=== PATIENT | female | born 1950 | race Caucasian/White ===

== ENCOUNTER 2023-05-20 12:00 | Observation (INO) ==
[2023-05-20 13:07] LABS: ABS Basophils 0.1 10^3/uL (0.0-0.1); ABS Eosinophils 0.2 10^3/uL (0.0-0.5); ABS Lymphocytes 1.8 10^3/uL (1.0-4.8); ABS Monocytes 0.6 10^3/uL (0.0-0.9); ABS Neutrophils 6.9 10^3/uL (1.5-7.6); ABS Nucleated RBC 0.01 10^3/ul; Eosinophil % 1.7 %; Hematocrit 42.9 % (35-45); Hemoglobin 14.6 g/dL (11.5-14.3); Mean Corpuscular Hemoglobin 32.2 pg (27-33); Mean Corpuscular Hgb Conc 34.1 g/dL (31-36); Mean Corpuscular Volume 94.4 fL (80-97); Mean Platelet Volume 7.3 fL (7.5-11.2); Nucleated Red Blood Cells % 0.1 %/100WBC (0.0-0.8); Platelet Count 259 10^3/uL (150-450); Red Blood Count 4.54 10^6/uL (3.63-4.92); White Blood Count 9.6 10^3/uL (3.8-11.8)
[2023-05-20 13:35] LABS: Albumin 4.3 g/dL (3.2-5.2); Albumin/Globulin Ratio 1.7 (1-3); Calcium 10.2 mg/dL (8.6-10.3); Creatinine, Serum 1.17 mg/dL (0.51-0.95); Globulin 2.6 g/dL (2-4); Total Protein 6.9 g/dL (6.4-8.9); eGFR CKD-EPI 48.7 (>60)
[2023-05-20] MEDS: Magnesium Sulfate IV 1GM/100ML 1 GM/100 ML BAG IV ONE (17:49)
[2023-05-20] MEDS: diazePAM INJ CARPUJECT 5 MG/ML SYRINGE IV ONE (19:46)
[2023-05-20] MEDS: Lactated Ringers 1000 ml BAG 500 ML IV ONE (23:44)
[2023-05-21 01:42] LABS: HDL Cholesterol 52.3 mg/dL
[2023-05-21] MEDS: Enoxaparin 40 MG/0.4 ML SYR SUBCUT SCH (06:22)
[2023-05-21 06:47] LABS: ABS Basophils 0.1 10^3/uL (0.0-0.1); ABS Eosinophils 0.2 10^3/uL (0.0-0.5); ABS Monocytes 0.6 10^3/uL (0.0-0.9); ABS Neutrophils 6.3 10^3/uL (1.5-7.6); ABS Nucleated RBC 0.01 10^3/ul; Eosinophil % 1.7 %; Hematocrit 40.1 % (35-45); Hemoglobin 13.8 g/dL (11.5-14.3); Lymphocyte % 21.7 %; Mean Corpuscular Hemoglobin 32.2 pg (27-33); Mean Corpuscular Hgb Conc 34.4 g/dL (31-36); Mean Corpuscular Volume 93.6 fL (80-97); Mean Platelet Volume 7.3 fL (7.5-11.2); Nucleated Red Blood Cells % 0.1 %/100WBC (0.0-0.8); Platelet Count 241 10^3/uL (150-450); Red Blood Count 4.28 10^6/uL (3.63-4.92); Red Cell Distribution Width 12.8 % (12-17)
[2023-05-21 07:21] LABS: Calcium 9.5 mg/dL (8.6-10.3); Creatinine, Serum 1.05 mg/dL (0.51-0.95); Magnesium 1.8 mg/dL (1.9-2.7); eGFR CKD-EPI 55.4 (>60)
[2023-05-21] MEDS ORDERED: Valsartan/HCTZ 160/25(NF) TAB PO SCH (09:00)
[2023-05-21] MEDS: Aspirin EC 81 mg TAB.EC (enteric coated) PO SCH (09:25)
[2023-05-21] MEDS: Magnesium Sulfate 2 gm BAG 2 GM/50 ML BAG IVPB ONE (09:26)
[2023-05-21] MEDS: Cholecalciferol (VIT D3) 1,000 unit TAB PO SCH (09:46)
[2023-05-21] MEDS ORDERED: Sulfur Hexaflouride MICROSPHR 25 MG VIAL ONE (14:16)
[2023-05-21 17:33] VITALS: BP 138/97
== END 2023-05-21 17:32 | disposition home or self-care (01) ==
LOC: ED 12:00 → EDHOLD 12:00 → SUATTDRO 22:31 → EDHOLD 05-21 10:17
PROVIDERS: ADMIT Internal Medicine; ATTEND Internal Medicine